=== PATIENT | female | born 1995 | race Asian ===

== ENCOUNTER 2021-09-29 16:09 | Emergency (ER) | payer OTHER ==
[~2021-09-29] VITALS: Ht 162.6 cm; Wt 46.0 kg
[2021-09-29 16:15] VITALS: BP 106/74
--- NOTE | 2021-09-29 16:34 | ED Upper Extremity ---
General Chief Complaint: Laceration Stated Complaint: R HAND FINGER LAC Source: patient Exam Limitations: no limitations History of Present Illness Date Seen by Provider: Sep 29, 2021 Time Seen by Provider: 16:31 Initial Comments To ER with a laceration to the right pointer finger that occurred just prior to arrival from a knife while cutting vegetables. Tetanus vaccine is up-to-date she states, updated in [place]. Onset: just prior to arrival Severity: mild Pain/Injury Location: right 2nd finger Method of Injury: direct blow Modifying Factors: Worse With Movement Allergies and Home Medications Patient Home Medication List Home Medication List Reviewed: Yes Review of Systems Constitutional: see HPI EENTM: see HPI Respiratory: no symptoms reported Cardiovascular: no symptoms reported Genitourinary: no symptoms reported Musculoskeletal: see HPI Skin: see HPI Psychiatric/Neurological: No Symptoms Reported Past Nsmjbuj-Bxxccs-Sdwqej Hx Patient Social History Tobacco Use?: No Smoking Status: Never a Smoker Smokeless Tobacco Frequency: Never a User Use of E-Cig and/or Vaping dev: No Use of E-Cig and/or Vaping Orestes: Never a User Substance use?: No Alcohol Use?: No Pt feels they are or have been: No Immunizations Up To Date Influenza Vaccine Up-to-Date: Yes; Up-to-Date First/Initial COVID19 Vaccinat: july 2021 COVID19 Vaccine Pharmacovigilance Safety Expert: unknown Physical Exam Vital Signs Capillary Refill : Height, Weight, BMI Height: '" Weight: lbs. oz. kg; BMI Method: General Appearance: WD/WN, no apparent distress HEENT: PERRL/EOMI, normal ENT inspection Respiratory: no respiratory distress, no accessory muscle use Shoulder: normal inspection, non-tender Elbow/Forearm: normal inspection, non-tender Wrist: Yes normal inspection, Yes non-tender Hand: normal inspection, non-tender, Right, laceration (There is a superficial skin flap over the radial side of the pointer finger at the PIP joint. Distal sensation and motor function and flexor and extensor tendon function is intact. No active bleeding. This is 1 cm in length. Scrubbed with chlorhexidine/saline solution then covered with skin affix tissue adhesive.) Neurologic/Psychiatric: alert, normal mood/affect, oriented x 3 Skin: normal color, warm/dry Departure Impression Primary Impression: Finger laceration Disposition: HOME, SELF-CARE Condition: Stable Departure-Patient Inst. Decision time for Depature: 16:33 Referrals: [facility] (PCP/Family) Primary Care Physician Patient Instructions: Laceration Repair With Glue ED Add. Discharge Instructions: 1. Return to ER for any concerns. Allow the glue to fall off on its own in 3 to 5 days. Do not apply any creams lotions or ointments. Do not soak this in water but allowing water to briefly run over it is fine. Return to ER for any sign of infection such as redness or swelling. All discharge instructions reviewed with patient and/or family. Voiced understanding. ANDREW WHITT FEED RESEARCH AIDE Sep 29, 2021 16:34
== END 2021-09-29 16:40 | disposition home or self-care (01) ==
LOC: ER 16:12
DX: S61.210A Laceration without foreign body of right index finger without damage to nail, initial encounter (principal); W26.0XXA Contact with knife, initial encounter
CPT/HCPCS: 99282

== ENCOUNTER 2022-01-17 16:46 | Emergency (ER) | payer OTHER ==
[~2022-01-17] VITALS: Ht 162 cm; Wt 48.0 kg
[2022-01-17 17:04] VITALS: BP 105/70
--- NOTE | 2022-01-17 17:22 | ED Lower Extremity ---
General Chief Complaint: Lower Extremity Stated Complaint: FALL/LET LEG INJURY Nursing Triage Note: PT TO [facility] PER W/C FOR L ANKLE AND SANCHEZ PAIN. PT STATES FELL AT APPROX 1PM TODAY. PT HAS TUMERIC AND SALT FOR PAIN AND SWELLING ON LEG. RATES PAIN 10/10 Source: patient Exam Limitations: no limitations History of Present Illness Date Seen by Provider: Jan 17, 2022 Time Seen by Provider: 17:20 Initial Comments ER with left lateral ankle and sanchez pain since she fell at 1 PM today. She rates the pain at 10 out of 10. Otherwise healthy takes no medications. She has not taken anything for the pain. She does not want anything for the pain at this time. She just wants to see if it is broken. She has been unable to bear weight. Onset: this afternoon Severity: moderate Pain/Injury Location: left leg, left ankle Method of Injury: fell Modifying Factors: Worse With Movement Allergies and Home Medications Allergies Coded Allergies: No Known Drug Allergies (Unverified , 01/17/22) Patient Home Medication List Home Medication List Reviewed: Yes Hydrocodone/Acetaminophen (Hydrocodone-Acetamin 5-325 mg) 1 Each Tablet, 1 TAB PO Q4H PRN for PAIN-MODERATE (5-7) Prescribed by: ANDREW WHITT on 01/17/22 184 Review of Systems Constitutional: see HPI EENTM: see HPI Respiratory: no symptoms reported Cardiovascular: no symptoms reported Genitourinary: no symptoms reported Musculoskeletal: see HPI Skin: no symptoms reported Psychiatric/Neurological: No Symptoms Reported Past Ssvzxol-Ssihnl-Nrugqk Hx Patient Social History Tobacco Use?: No Substance use?: No Alcohol Use?: No Pt feels they are or have been: No Immunizations Up To Date First/Initial COVID19 Vaccinat: COVID VACCINE FROM [facility] Second COVID19 Vaccination [place]: COVID VACCINE FROM [facility] Physical Exam Vital Signs Vital Signs - First Documented 01/17/22 17:04 Temp 36.9 Pulse 101 Resp 18 B/P (MAP) 105/70 (82) Pulse Ox 99 O2 Delivery Room Air Capillary Refill : Less Than 3 Seconds Height, Weight, BMI Height: '" Weight: lbs. oz. kg; 18.00 BMI Method: General Appearance: WD/WN, no apparent distress Neck: non-tender, full range of motion Respiratory: no respiratory distress, no accessory muscle use Hips: bilateral hip non-tender, bilateral hip normal inspection, bilateral hip normal range of motion Legs: left leg pain, left leg soft tissue tenderness Knees: bilateral knee non-tender, bilateral knee normal inspection, bilateral knee normal range of motion Ankles: left ankle pain, left ankle soft tissue tenderness, left ankle swelling Feet: bilateral foot non-tender, bilateral foot normal inspection, bilateral foot normal range of motion Neurologic/Psychiatric: alert, normal mood/affect, oriented x 3 Skin: normal color, warm/dry Progress/Results/Core Measures Results/Orders Lab Results Laboratory Tests Test 01/17/22 18:16 Range/Units White Blood Count 12.2 H 4.3-11.0 10^3/uL Red Blood Count 5.07 3.80-5.11 10^6/uL Hemoglobin 13.4 11.5-16.0 g/dL Hematocrit 41 35-52 % Mean Corpuscular Volume 81 80-99 fL Mean Corpuscular Hemoglobin 26 25-34 pg Mean Corpuscular Hemoglobin Concent 33 32-36 g/dL Red Cell Distribution Width 15.8 H 10.0-14.5 % Platelet Count 225 130-400 10^3/uL Mean Platelet Volume 10.5 9.0-12.2 fL Immature Granulocyte % (Auto) 0 % Neutrophils (%) (Auto) 85 H 42-75 % Lymphocytes (%) (Auto) 10 L 12-44 % Monocytes (%) (Auto) 4 0-12 % Eosinophils (%) (Auto) 0 0-10 % Basophils (%) (Auto) 0 0-10 % Neutrophils # (Auto) 10.4 H 1.8-7.8 10^3/uL Lymphocytes # (Auto) 1.2 1.0-4.0 10^3/uL Monocytes # (Auto) 0.5 0.0-1.0 10^3/uL Eosinophils # (Auto) 0.0 0.0-0.3 10^3/uL Basophils # (Auto) 0.0 0.0-0.1 10^3/uL Immature Granulocyte # (Auto) 0.0 0.0-0.1 10^3/uL Prothrombin Time 13.4 12.2-14.7 SEC INR Comment 1.0 0.8-1.4 Activated Partial Thromboplast Time 26 24-35 SEC Sodium Level 135 135-145 MMOL/L Potassium Level 4.6 3.6-5.0 MMOL/L Chloride Level 105 98-107 MMOL/L Carbon Dioxide Level 18 L 21-32 MMOL/L Anion Gap 12 5-14 MMOL/L Blood Urea Nitrogen 10 7-18 MG/DL Creatinine 0.67 0.60-1.30 MG/DL Estimat Glomerular Filtration Rate 125 BUN/Creatinine Ratio 15 Glucose Level 93 70-105 MG/DL Calcium Level 9.8 8.5-10.1 MG/DL Corrected Calcium 8.5-10.1 MG/DL Total Bilirubin 0.3 0.1-1.0 MG/DL Aspartate Amino Transf (AST/SGOT) 30 5-34 U/L Alanine Aminotransferase (ALT/SGPT) 8 0-55 U/L Alkaline Phosphatase 55 40-136 U/L Total Protein 9.1 H 6.4-8.2 GM/DL Albumin 4.8 H 3.2-4.5 GM/DL Serum Test, Qualitative NEGATIVE NEGATIVE My Orders Orders - ANDREW WHITT APRN Tibia/Fibula, Left, 2 Views (01/17/22 17:19) Ankle, Left, 3 Views (01/17/22 17:19) Cbc With Automated Diff (01/17/22 17:52) Comprehensive Metabolic Panel (01/17/22 17:52) Ed Iv/Invasive Line Start (01/17/22 17:52) Hcg,Qualitative Serum (01/17/22 17:52) Protime With Inr (01/17/22 17:52) Partial Thromboplastin Time (01/17/22 17:52) Fentanyl Inj (Sublimaze Injection) (01/17/22 18:00) Rx-Hydrocodone/Apap 5-325 Mg (Rx-Vicodin (01/17/22 19:00) Crutches (01/17/22 18:49) Medications Given in ED Current Medications Medications Dose Ordered Sig/Serena Route Start Time Stop Time Status Last Admin Dose Admin Acetaminophen/ Hydrocodone Bitart 1 ea Q4H PRN PO 01/17/22 19:00 01/17/22 19:01 1 EA Fentanyl Citrate 25 mcg ONCE PRN IVP 01/17/22 18:00 01/17/22 18:15 25 MCG Vital Signs/I&O 01/17/22 17:04 Temp 36.9 Pulse 101 Resp 18 B/P (MAP) 105/70 (82) Pulse Ox 99 O2 Delivery Room Air Blood Pressure Mean: 82 Departure Communication (Admissions) 181-I spoke with Dr. Jasso from orthopedics here, recommends transfer to a center as he does not believe that he has the hardware here required to fix the posterior malleolus in addition to the oblique fracture of the distal tibia. 1833-she is neurovascularly intact at the toe tips. Placed her in a posterior long-leg splint using 4 inch Scotchcast. 1844-spoke with the ER doctor at [facility], thinks this could probably go home but would like to speak with orthopedics first. I then spoke with Dr. Adam on- call for orthopedics. He agrees that she can be sent home for outpatient follow -up. He would like to have a stirrup splint added to the posterior long-leg splint and he will see her in the clinic. NAME: SORIN AMARAL MED REC#: [id number] PT STATUS: REG ER : 1995 PHYSICIAN: ANDREW WHITT APRN ADMIT DATE: 01/17/22/ER Draft Date of Exam:01/17/22 ANKLE, LEFT, 3 VIEWS EXAM: Ankle, left, 3 views. INDICATION: Left ankle pain. Fall. COMPARISON: None. FINDINGS: Spiral fracture of the distal left tibial metadiaphysis. Left posterior malleolus fracture is mildly displaced. Oblique mildly displaced fracture of the left distal fibular metaphysis above the level of the tibial plafond. There appears to be some widening of the medial clear space. Left ankle joint effusion. Soft tissue swelling. IMPRESSION: Multiple distal left tibia and fibula fractures, as above. There appears to be some widening of the medial clear space. Dictated on workstation # [id number] Dict: 01/17/221741 Trans: 01/17/221745 [facility] [id number] Interpreted by: JOSÉ MANUEL NAVARRETE MD Electronically signed by: NAME: AMARALSORIN METCALF MED REC#: [id number] PT STATUS: REG ER : 1995 PHYSICIAN: ANDREW WHITT APRN ADMIT DATE: 01/17/22/ER Draft Date of Exam:01/17/22 TIBIA/FIBULA, LEFT, 2 VIEWS EXAM: Tibia/fibula, left, 2 views. INDICATION: Left ankle pain. Trauma. COMPARISON: Left ankle radiographs also performed today. FINDINGS: Mildly displaced posterior left malleolar fracture. Spiral fracture of the distal left tibial metadiaphysis. Mildly displaced oblique fracture of the distal left fibular metaphysis above the level of the tibial plafond. Soft tissue swelling. Probable widening of the medial clear space. No proximal tibia or fibula fractures are identified. IMPRESSION: Multiple distal left tibial and fibular fractures, as above. Dictated on workstation # [id number] Dict: 01/17/221743 Trans: 01/17/221746 [facility] [id number] Interpreted by: JOSÉ MANUEL NAVARRETE MD Electronically signed by: Impression Primary Impression: Left tibial fracture Disposition: 01 HOME, SELF-CARE Condition: Stable Departure-Patient Inst. Decision time for Depature: 18:45 Referrals: [facility] (PCP/Family) Primary Care Physician Patient Instructions: [facility] ED Add. Discharge Instructions: 1. Do not put any weight on the left leg. Keep it elevated as much as possible. Take the pain medication as directed. Call Dr. Adam at [facility] in [place] on Wednesday. Return to ER for any intolerable pain or other concerns. Dr. Vladimir Adam [facility] [address], [place] [address] All discharge instructions reviewed with patient and/or family. Voiced understanding. Scripts Hydrocodone/Acetaminophen (Hydrocodone-Acetamin 5-325 mg) 1 Each Tablet 1 TAB PO Q4H PRN for PAIN-MODERATE (5-7), #20 TAB Prov: ANDREW WHITT APRN 01/17/22 Work/School Note: Work Release Form Date Seen in the Emergency Department: Jan 17, 2022 Return to Work: Jan 23, 2022 ANDREW WHITT APRN Jan 17, 2022 17:22
--- NOTE | 2022-01-17 17:46 | Diagnostic Imaging Report ---
EXAM: Ankle, left, 3 views. INDICATION: Left ankle pain. Fall. COMPARISON: None. FINDINGS: Spiral fracture of the distal left tibial metadiaphysis. Left posterior malleolus fracture is mildly displaced. Oblique mildly displaced fracture of the left distal fibular metaphysis above the level of the tibial plafond. There appears to be some widening of the medial clear space. Left ankle joint effusion. Soft tissue swelling. IMPRESSION: Multiple distal left tibia and fibula fractures, as above. There appears to be some widening of the medial clear space. Dictated by: Dictated on workstation # [id number]
--- NOTE | 2022-01-17 17:47 | Diagnostic Imaging Report ---
EXAM: Tibia/fibula, left, 2 views. INDICATION: Left ankle pain. Trauma. COMPARISON: Left ankle radiographs also performed today. FINDINGS: Mildly displaced posterior left malleolar fracture. Spiral fracture of the distal left tibial metadiaphysis. Mildly displaced oblique fracture of the distal left fibular metaphysis above the level of the tibial plafond. Soft tissue swelling. Probable widening of the medial clear space. No proximal tibia or fibula fractures are identified. IMPRESSION: Multiple distal left tibial and fibular fractures, as above. Dictated by: Dictated on workstation # [id number]
[2022-01-17] MEDS ORDERED: fentaNYL INJ 100 MCG/2 ML AMP IVP PRN (18:00)
[2022-01-17 18:24] LABS: BASOPHILS % (AUTO) 0 % (0-10); EOSINOPHILS % (AUTO) 0 % (0-10); HEMATOCRIT 41 % (35-52); HEMOGLOBIN 13.4 g/dL (11.5-16.0); LYMPHOCYTES # (AUTO) 1.2 10^3/uL (1.0-4.0); LYMPHOCYTES % (AUTO) 10 % (12-44); MEAN CORPUSCULAR HEMOGLOBIN 26 pg (25-34); MEAN CORPUSCULAR HGB CONC 33 g/dL (32-36); MEAN CORPUSCULAR VOLUME 81 fL (80-99); MEAN PLATELET VOLUME 10.5 fL (9.0-12.2); MONOCYTES # (AUTO) 0.5 10^3/uL (0.0-1.0); MONOCYTES % (AUTO) 4 % (0-12); NEUTROPHILS # (AUTO) 10.4 10^3/uL (1.8-7.8); NEUTROPHILS % (AUTO) 85 % (42-75); PLATELET COUNT 225 10^3/uL (130-400); WHITE BLOOD COUNT 12.2 10^3/uL (4.3-11.0)
[2022-01-17 18:33] LABS: ALBUMIN 4.8 GM/DL (3.2-4.5); CHLORIDE 105 MMOL/L (98-107); POTASSIUM 4.6 MMOL/L (3.6-5.0)
[2022-01-17 18:34] LABS: SODIUM 135 MMOL/L (135-145)
[2022-01-17 18:35] LABS: CALCIUM 9.8 MG/DL (8.5-10.1)
[2022-01-17 18:36] LABS: GLUCOSE 93 MG/DL (70-105); TOTAL PROTEIN 9.1 GM/DL (6.4-8.2)
[2022-01-17 18:37] LABS: CARBON DIOXIDE 18 MMOL/L (21-32); PROTHROMBIN TIME PATIENT 13.4 SEC (12.2-14.7)
[2022-01-17 18:38] LABS: BILIRUBIN,TOTAL 0.3 MG/DL (0.1-1.0)
[2022-01-17 18:39] LABS: ALKALINE PHOSPHATASE 55 U/L (40-136); CREATININE SERUM 0.67 MG/DL (0.60-1.30); GFR ESTIMATED 125
[2022-01-17 18:41] LABS: BUN/CREATININE RATIO 15
[2022-01-17 18:42] LABS: ALANINE AMINOTRANSFERASE 8 U/L (0-55)
[2022-01-17] MEDS ORDERED: ACHD5005 PO (18:46)
== END 2022-01-17 19:23 | disposition home or self-care (01) ==
LOC: EDUNIT# 16:46 → ER 16:49
DX: S82.392A Other fracture of lower end of left tibia, initial encounter for closed fracture (principal); S82.822A Torus fracture of lower end of left fibula, initial encounter for closed fracture; S82.892A Other fracture of left lower leg, initial encounter for closed fracture; Z32.02 Encounter for pregnancy test, result negative; W19.XXXA Unspecified fall, initial encounter
CPT/HCPCS: 29515; 36415; 73590; 73610; 80053; 84703; 85025; 85610; 85730

== ENCOUNTER 2022-03-18 10:05 | Outpatient (RCR) | payer OTHER ==
[~2022-03-18 10:05] MED LIST: ACHD5005 PO
== END 2022-03-21 | disposition home or self-care (01) ==
PROVIDERS: ATTEND Orthopaedic Surgery Orthopaedic Trauma
DX: S82.209D Unspecified fracture of shaft of unspecified tibia, subsequent encounter for closed fracture with routine healing (principal); S82.409D Unspecified fracture of shaft of unspecified fibula, subsequent encounter for closed fracture with routine healing; X58.XXXD Exposure to other specified factors, subsequent encounter

== ENCOUNTER 2022-03-27 14:33 | Outpatient (RCR) | payer OTHER | END 2022-03-27 16:02 | disposition home or self-care (01) | PROVIDERS: ATTEND Orthopaedic Surgery Orthopaedic Trauma | DX: Z98.890 Other specified postprocedural states (principal) ==